=== PATIENT | female | born 1955 | race Caucasian/White ===

== ENCOUNTER → 2016-09-24 | Outpatient (CLI) | payer MEDICARE, OTHER | LOC: ECHO 09-10 13:30 | DX: R07.9 Chest pain, unspecified (principal); R53.83 Other fatigue; I10 Essential (primary) hypertension; R06.02 Shortness of breath | CPT/HCPCS: ECHO; 93306 ==

== ENCOUNTER → 2020-06-11 | Outpatient (CLI) | payer MEDICARE ==
[2020-06-11 10:52] LABS: HEMOGLOBIN 13.8 gm/dl (12.3-15.3); RED BLOOD COUNT 4.19 M/UL (4.00-5.10); WHITE BLOOD COUNT 4.5 K/UL (4.5-11.0)
[2020-06-11 11:20] LABS: BUN/CREATININE RATIO 16 (0-10)
== END ==
LOC: LAB 10:00
PROVIDERS: Family Medicine
DX: E78.5 Hyperlipidemia, unspecified (principal); E55.9 Vitamin D deficiency, unspecified; E53.8 Deficiency of other specified B group vitamins
CPT/HCPCS: 36415; 80053; 80061; 82607; 85027

== ENCOUNTER → 2020-08-19 | Outpatient (CLI) | payer MEDICARE ==
[2020-08-19 12:47] LABS: BUN/CREATININE RATIO 8 (0-10)
== END ==
LOC: LAB 12:03
PROVIDERS: Family Medicine
DX: E87.6 Hypokalemia (principal)
CPT/HCPCS: 36415; 80048

== ENCOUNTER → 2020-09-06 | Outpatient (CLI) | payer MEDICARE ==
[2020-09-06 10:22] LABS: BUN/CREATININE RATIO 11 (0-10)
== END ==
LOC: LAB 09:32
PROVIDERS: Family Medicine
DX: E87.6 Hypokalemia (principal)
CPT/HCPCS: 36415; 80048

== ENCOUNTER → 2020-09-11 | Outpatient (CLI) | payer MEDICARE ==
[2020-09-11 10:58] LABS: BUN/CREATININE RATIO 9 (0-10)
== END ==
LOC: LAB 09:59
PROVIDERS: Family Medicine
DX: E87.6 Hypokalemia (principal)
CPT/HCPCS: 36415; 80048

== ENCOUNTER → 2020-10-31 | Outpatient (CLI) | payer MEDICARE, OTHER | LOC: US 11:00 → ECHO 12:00 | DX: I63.9 Cerebral infarction, unspecified (principal); R07.9 Chest pain, unspecified | CPT/HCPCS: ECHO; 93306; 93880 ==

== ENCOUNTER → 2021-05-06 | Outpatient (CLI) | payer MEDICARE | LOC: EXRD 11:28 | DX: U07.1 COVID-19 (principal) | CPT/HCPCS: 71046 ==

== ENCOUNTER → 2021-08-22 | Outpatient (CLI) | payer MEDICARE ==
[2021-08-22 13:33] LABS: HEMOGLOBIN 12.7 gm/dl (12.3-15.3); RED BLOOD COUNT 3.89 M/UL (4.00-5.10); WHITE BLOOD COUNT 3.8 K/UL (4.5-11.0)
[2021-08-22 13:55] LABS: BUN/CREATININE RATIO 13 (0-10)
[2021-08-23 08:16] LABS: VITAMIN D, 25-HYDROXY 42.3 ng/mL (30.0-100.0)
== END ==
LOC: LAB 13:05
PROVIDERS: Family Medicine
DX: E78.5 Hyperlipidemia, unspecified (principal); I10 Essential (primary) hypertension; E55.9 Vitamin D deficiency, unspecified; E53.8 Deficiency of other specified B group vitamins; R53.83 Other fatigue
CPT/HCPCS: 36415; 80053; 80061; 82607; 83735; 85027; 86038

== ENCOUNTER → 2021-10-15 | Outpatient (CLI) | payer MEDICARE | LOC: KOH-I 13:04 | DX: K31.89 Other diseases of stomach and duodenum (principal); R11.0 Nausea | CPT/HCPCS: 74176 ==